=== PATIENT | male | born 1960 | race Caucasian/White ===

== ENCOUNTER 2017-04-29 00:57 | Emergency (ER) | payer MEDICAID, OTHER ==
[~2017-04-29] VITALS: Ht 172.7 cm; Wt 64.0 kg
--- NOTE | 2017-04-29 01:15 | ERD ---
ER Documentation Chief Complaint Chief Complaint Left wrist pain HPI The patient is a 56-year-old male, presenting to the ER because he had a mechanical fall about 3 PM, fell on his left wrist did not hit his head on the floor. He denies syncope, near syncope, neck pain, chest pain, dyspnea, abdominal pain, vomiting or dysuria, diarrhea. He smokes and drinks, denies illicit drug Past medical history: None Past surgical history: Deviated septum ROS All systems reviewed and are negative except as per history of present illness. Medications Home Meds Active Scripts Tramadol HCl (Tramadol HCl) 50 Mg Tablet, 50 MG PO Q6 Y for PAIN, #10 TAB Prov:ROBBI DENT MD 04/29/17 Allergies Allergies: Coded Allergies: No Known Allergy (Unverified , 04/29/17) PMhx/Soc History of Surgery: Yes (RT ANKLE SX, LEFT THIGH SX) Anesthesia Reaction: No Hx Neurological Disorder: No Hx Respiratory Disorders: No Hx Cardiac Disorders: No Hx Psychiatric Problems: No Hx Miscellaneous Medical Probl: No Hx Alcohol Use: Yes (STOPPED DRINKING 5 YRS AGO) Hx Substance Use: No Hx Tobacco Use: Yes (18 CIG A DAY) Physical Exam Vitals Vital Signs Date Time Temp Pulse Resp B/P Pulse Ox O2 Delivery O2 Flow Rate FiO2 04/29/17 03:04 98.1 88 18 152/80 99 Room Air 04/29/17 01:21 98.1 68 18 166/81 96 Physical Exam Const: No acute distress. Head: Atraumatic. Eyes: Normal Conjunctiva. ENT: Normal External Ears, Nose and Mouth. Neck: Full range of motion. No meningismus. Resp: Clear to auscultation bilaterally. Cardio: Regular rate and rhythm. Abd: Soft, non distended, normal bowel sounds, non tender. Skin: No petechiae or rashes. Back: No midline or flank tenderness. Ext: Left wrist with mild edema and mild tenderness, no skin violation , no erythema, not warm to touch Neur: Awake and alert. No focal deficit Psych: Normal Mood and Affect. Results 24 hrs Current Medications Medications (Trade) Dose Ordered Sig/Shayy Route PRN Reason Start Time Stop Time Status Last Admin Dose Admin Morphine Sulfate (morphine) 4 mg ONCE STAT IV 04/29/17 01:21 04/29/17 01:23 DC 04/29/17 01:30 Ondansetron HCl (Zofran Inj) 4 mg ONCE STAT IV 04/29/17 01:21 04/29/17 01:23 DC 04/29/17 01:30 Ketorolac Tromethamine (Toradol) 30 mg STK-MED ONCE .ROUTE 04/29/17 03:02 04/29/17 03:03 DC Ketorolac Tromethamine (Toradol) 30 mg ONCE STAT IV 04/29/17 03:04 04/29/17 03:06 DC 04/29/17 03:29 Procedures/MDM [place] [id number] Radiology Main Line: [phone] DIAGNOSTIC IMAGING REPORT Patient: CAESAR JEROME : 1960 Age: 56 Sex: M MR #: [id number] DOS: 04/29/17 0121 Ordering MD: ROBBI DENT MD Location: E/R Room/Bed: AMENDMENT: 04/29/2017 2:40:14 AM Robbi Ronquillo Md ADDENDUM: Corrected first line of Findings: There is an acute comminuted dorsally displaced fracture of the distal radial metaphysis with mild impaction.. PROCEDURE: XR Left Wrist. CLINICAL INDICATION: Trauma. Pain. TECHNIQUE: Four AP, lateral and oblique views of the left wrist were performed. COMPARISON: No prior studies are available for comparison. FINDINGS: This acute comminuted dorsally displaced fracture of the distal radial metaphysis with mild impaction.. There is an ulnar styloid fracture. Joint relationships are maintained. Bone mineralization is within normal limits. Soft tissues are unremarkable. IMPRESSION: Mildly impacted dorsally displaced comminuted fracture distal radial metaphysis. Ulnar styloid fracture. RPTAT: HMVK .Robbi Ronquillo MD, Date Time Electronically viewed and signed by .Robbi Ronquillo MD, on 04/29/2017 02:40 .K/ CC: ROBBI DENT MD [place] [id number] Radiology Main Line: [phone] DIAGNOSTIC IMAGING REPORT Patient: CAESAR JEROME : 1960 Age: 56 Sex: M MR #: [id number] DOS: 04/29/17 012 Ordering MD: ROBBI DENT MD Location: E/R Room/Bed: PROCEDURE: XR Hand. CLINICAL INDICATION: Trauma. Pain. TECHNIQUE: Three views of the left hand were obtained. COMPARISON: No prior studies are available for comparison. FINDINGS: There is an acute comminuted dorsally displaced fracture of the distal radial metaphysis with mild impaction.. There is an ulnar styloid fracture. No other fractures identified. Joint relationships are maintained. Bone mineralization is within normal limits. Soft tissues are unremarkable. IMPRESSION: Distal radial and ulnar fractures. RPTAT: HMVK .Robbi Ronquillo MD, MD Date Time Electronically viewed and signed by .Robbi Ronquillo MD, on 04/29/2017 02:39 .K/ CC: ROBBI DENT MD [place] [id number] Radiology Main Line: [phone] DIAGNOSTIC IMAGING REPORT Patient: CAESAR JEROME : 1960 Age: 56 Sex: M MR #: [id number] DOS: 04/29/17 012 Ordering MD: ROBBI DENT MD Location: E/R Room/Bed: PROCEDURE: XR Forearm. CLINICAL INDICATION: Trauma. Pain. TECHNIQUE: AP and lateral views of the left forearm were obtained. COMPARISON: No prior studies are available for comparison. FINDINGS: There is a dorsally displaced impacted and comminuted fracture distal radial metaphysis. Ulnar styloid fracture is present. No other fractures identified. Joint relationships are maintained. Bone mineralization is within normal limits. Soft tissues are unremarkable. IMPRESSION: Distal radial and ulnar fractures. RPTAT: HMVK .Robbi Ronquillo MD, MD Date Time Electronically viewed and signed by .Robbi Ronquillo MD, MD on 04/29/2017 02:37 .K/ CC: ROBBI DENT MD [place] [address] Radiology Main Line: [phone] DIAGNOSTIC IMAGING REPORT Patient: CAESAR JEROME : 1960 Age: 56 Sex: M MR #: [id number] DOS: 04/29/17 0121 Ordering MD: ROBBI DENT MD Location: E/R Room/Bed: PROCEDURE: CT BRAIN WITHOUT CONTRAST CLINICAL INDICATION: 56-year-old male with trauma. TECHNIQUE: The study was performed utilizing a [employer] VCT 64-slice CT scanner. Direct axial sections were obtained from the foramen magnum to the vertex without the use of intravenous contrast material. Sagittal and coronal reformations were obtained. One or more the following dose reduction techniques were utilized: automated exposure control, adjustment of the mA and/or kV according to patient's size and/or the use of iterative reconstruction technique. DICOM images are available. The images were viewed on a PACS workstation. CTD/vol = 43.9 mGy; Total Exam DLP = 720.2 mGy-cm. COMPARISON: None. FINDINGS: The ventricles have a normal size, shape and position. There is no evidence for mass effect or midline shift. There are no intracranial areas of abnormal attenuation. There is no evidence for acute intra or extra-axial blood. The bony calvarium is intact. There is minimal mucosal thickening within the ethmoid air cells and sphenoid sinuses. No air-fluid levels are noted. The mastoid air cells are without significant soft tissue. IMPRESSION: 1. The intracranial contents are unremarkable on this noncontrast CT scan of the brain. 2. Minimal mucosal thickening ethmoid air cells and sphenoid sinuses. .Jaswant Garcia MD, MD Date Time Electronically viewed and signed by .Jaswant Garcia MD, MD on 04/29/2017 02:45 .M/ CC: ROBBI DENT MD MEDICAL MAKING DECISION: The patient is a 56-year-old male, presenting to the ER because of acute left distal ulna and left distal radial fracture, acute scalp contusion. He was treated with morphine 4 mg IV, Toradol 30 IV for pain with good response. He was treated with left sugar tong and left sling. Post splint neurovascular is intact Differential, fracture, contusion, internal derangement Departure Diagnosis: Primary Impression: Wrist fracture, left Condition: Good Comments He was discharged with [facility] I discussed the findings with the patient. I advised the patient to follow-up with at [facility] in about 1-2 days, sooner if needed and return if any concern. Disclaimer: Inadvertent spelling and grammatical errors are likely due to EHR/ dictation software use and do not reflect on the overall quality of patient care. Also, please note that the electronic time recorded on this note does not necessarily reflect the actual time of the patient encounter. ROBBI DENT MD Apr 29, 2017 01:15
[2017-04-29 01:21] VITALS: Ht 172.7 cm; Wt 64.0 kg
[2017-04-29] MEDS ORDERED: ONDANSETRON 4 MG INJ IV STA (01:21)
[2017-04-29] MEDS ORDERED: morphine 4 MG/ML VIAL IV STA (01:21)
--- NOTE | 2017-04-29 02:35 | RADRPT ---
AMENDMENT: 04/29/2017 2:40:14 AM Robbi Ronquillo Md ADDENDUM: Corrected first line of Findings: There is an acute comminuted dorsally displaced fracture of the distal radial metaphysis with mild i mpaction.. PROCEDURE: XR Left Wrist. CLINICAL INDICATION: Trauma. Pain. TECHNIQUE: Four AP, lateral and oblique views of the left wrist were performed. COMPARISON: No prior studies are available for comparison. FINDINGS: This acute comminuted dorsally displaced fracture of the distal radial metaphysis with mild impactio n.. There is an ulnar styloid fracture. Joint relationships are maintained. Bone mineralization is within normal limits. Soft tissues are unremarkable. IMPRESSION: Mildly impacted dorsally displaced comminuted fracture distal radial metaphysis. Ulnar styloid fract ure. RPTAT: HMVK .Robbi Ronquillo MD, Date Time Electronically viewed and signed by .Robbi Ronquillo MD, on 04/29/2017 02:40 .K/
--- NOTE | 2017-04-29 02:38 | RADRPT ---
PROCEDURE: XR Forearm. CLINICAL INDICATION: Trauma. Pain. TECHNIQUE: AP and lateral views of the left forearm were obtained. COMPARISON: No prior studies are available for comparison. FINDINGS: There is a dorsally displaced impacted and comminuted fracture distal radial metaphysis. Ulnar stylo id fracture is present. No other fractures identified. Joint relationships are maintained. Bone min eralization is within normal limits. Soft tissues are unremarkable. IMPRESSION: Distal radial and ulnar fractures. RPTAT: HMVK .Robbi Ronquillo MD, Date Time Electronically viewed and signed by .Robbi Ronquillo MD, on 04/29/2017 02:37 .K/
--- NOTE | 2017-04-29 02:39 | RADRPT ---
PROCEDURE: XR Hand. CLINICAL INDICATION: Trauma. Pain. TECHNIQUE: Three views of the left hand were obtained. COMPARISON: No prior studies are available for comparison. FINDINGS: There is an acute comminuted dorsally displaced fracture of the distal radial metaphysis with mild i mpaction.. There is an ulnar styloid fracture. No other fractures identified. Joint relationships ar e maintained. Bone mineralization is within normal limits. Soft tissues are unremarkable. IMPRESSION: Distal radial and ulnar fractures. RPTAT: HMVK .Robbi Ronquillo MD, Date Time Electronically viewed and signed by .Robbi Ronquillo MD, on 04/29/2017 02:39 .K/
--- NOTE | 2017-04-29 02:45 | RADRPT ---
PROCEDURE: CT BRAIN WITHOUT CONTRAST CLINICAL INDICATION: 56-year-old male with trauma. TECHNIQUE: The study was performed utilizing a [employer] VCT 64-slice CT scanner. Direct axia l sections were obtained from the foramen magnum to the vertex without the use of intravenous contra st material. Sagittal and coronal reformations were obtained. One or more the following dose reduct ion techniques were utilized: automated exposure control, adjustment of the mA and/or kV according t o patient's size and/or the use of iterative reconstruction technique. DICOM images are available. T he images were viewed on a PACS workstation. CTD/vol = 43.9 mGy; Total Exam DLP = 720.2 mGy-cm. COMPARISON: None. FINDINGS: The ventricles have a normal size, shape and position. There is no evidence for mass effect or midl ine shift. There are no intracranial areas of abnormal attenuation. There is no evidence for acute intra or extra-axial blood. The bony calvarium is intact. There is minimal mucosal thickening withi n the ethmoid air cells and sphenoid sinuses. No air-fluid levels are noted. The mastoid air cells a re without significant soft tissue. IMPRESSION: 1. The intracranial contents are unremarkable on this noncontrast CT scan of the brain. 2. Minimal mucosal thickening ethmoid air cells and sphenoid sinuses. .Jaswant Garcia MD, Date Time Electronically viewed and signed by .Jaswant Garcia MD, on 04/29/2017 02:45 .M/
[2017-04-29] MEDS ORDERED: KETOROLAC 30 MG INJ ONE (03:02)
[2017-04-29 03:04] VITALS: BP 152/80; PULSE 88; RESP 18; TEMP 98.1
[2017-04-29] MEDS ORDERED: KETOROLAC 30 MG INJ IV STA (03:04)
[2017-04-29] MEDS ORDERED: TRAM50TA2 PO (03:25)
== END 2017-04-29 04:20 | disposition home or self-care (01) ==
LOC: E/R 00:57
DX: S52.502A Unspecified fracture of the lower end of left radius, initial encounter for closed fracture (principal); R40.2252 Coma scale, best verbal response, oriented, at arrival to emergency department; S52.612A Displaced fracture of left ulna styloid process, initial encounter for closed fracture; F17.210 Nicotine dependence, cigarettes, uncomplicated; R40.2142 Coma scale, eyes open, spontaneous, at arrival to emergency department; R40.2362 Coma scale, best motor response, obeys commands, at arrival to emergency department; R51 Headache; W18.39XA Other fall on same level, initial encounter; Y92.9 Unspecified place or not applicable
CPT/HCPCS: 29125; 70450; 73090; 73110; 73130; 96374; 96375; J1885; J2270; J2405; Z7502